=== PATIENT | male | born 1965 | race Caucasian/White ===

== ENCOUNTER 2016-06-12 05:51 | Emergency (ER) | payer OTHER ==
[2014-06-21 19:24] VITALS: BP 147/74
--- NOTE | 2016-06-12 06:27 | PHYS DOC ---
Past Medical History Past Medical History: Arthritis, Asthma Additional Past Medical Histor: chronic back pain, prostatitis Past Surgical History: Tonsillectomy Additional Past Surgical Histo: Orthoscopic Lt knee, nose Alcohol Use: None Drug Use: None Adult General Chief Complaint Chief Complaint: CPR/FULL ARREST HPI HPI Patient is a 50 year old gentleman with history significant for obstructive sleep apnea and hypertension presented to the ER today by EMS as a CODE BLUE alert. According to EMS, the woke up and heard her breathing funny so she called 911. Upon EMS arrival they report that he was apneic and was asystolic. Patient was intubated with an LMA. They proceeded with ACLS protocol for approximately 40 minutes prior to arrival to the ER here. She received approximately 4 rounds of epinephrine by EMS and 4-5 electrocardioversions without any change in the patient's rhythm. It was unclear whether the patient was in asystole versus in fine V. fib however the patient was treated in the field in fine V. fib with electric cardioversion. Patient had no spontaneous respirations. An per EMS patient had no pulse throughout their entire process. Upon arrival to the ER the patient was noted to be in either asystole versus extremely fine V. fib he was pulseless and apneic. ACLS was initiated in the ED the patient was given epinephrine and was shocked as well. Despite all these measures the patient remained asystolic and apneic. Patient's total code time was greater than 45 minutes. Patient was pronounced at 6:01 AM. Case was discussed with the patient's and she is aware of this diagnosis. Patient's PCP is Dr. Jose Knight. Dr. Sales is grants and contracts assistant for Dr. Knight. Dr. Sales reviewed the patient's chart and he feels patient would best served being a hooker up's case. The patient does not seem to have had many medical problems and apparently the last time he was seen by Dr. Knight was almost 7 months ago for lower extremity swelling. Further history was unobtainable from the patient secondary to his critical condition. Further physical exam was unobtainable from the patient secondary to his critical condition. Review of systems unobtainable secondary to the patient's critical condition. Upon arrival to the ER patient was asystolic, cyanotic, pulseless, pupils were 5 mm and fixed and dilated. Patient had no spontaneous pulse. No spontaneous respirations. Abdomen was soft nondistended. Lungs were with audible rhonchi with [id number] were equal bilaterally. A/P #1 status post cardiac arrest/status post CPR. Etiology of patient's CODE BLUE status is unclear. Patient was pronounced at 6:[address] Morse was notified the patient will be a hooker up's case. DW dr awad, accepts case for coroners Review of Systems Review of Systems Please see above Allergies Allergies Allergies Coded Allergies Type Severity Reaction Last Updated Verified No Known Drug Allergies 06/21/14 No Physical Exam Physical Exam Please see above EKG EKG [] Radiology/Procedures Radiology/Procedures [] Course & Med Decision Making Course & Med Decision Making Pertinent Labs and Imaging studies reviewed. (See chart for details) [] Dragon Disclaimer Dragon Disclaimer This electronic medical record was generated, in whole or in part, using a voice recognition dictation system. Departure Departure Impression: Primary Impression: Cardiac arrest Additional Impression: Respiratory arrest Disposition: 20 Condition: Referrals: ELLEN KNIGHT MD (PCP) Problem Qualifiers BAL SOLORZANO MD June 12, 2016 06:27
[2016-06-12] MEDS ORDERED: EPINEPHrine SYRINGE 1 MG/10 ML SYRINGE ONE (12:00)
[2016-06-12] MEDS ORDERED: SODIUM BICARB ADULT 8.4% 50 MEQ/50 ML DISP.SYRIN. ONE (12:00)
== END 2016-06-12 10:45 | disposition expired ==
LOC: ER 05:51
DX: I46.9 Cardiac arrest, cause unspecified (principal); R09.2 Respiratory arrest; J45.909 Unspecified asthma, uncomplicated; G89.29 Other chronic pain; M19.90 Unspecified osteoarthritis, unspecified site
CPT/HCPCS: 92950; 99285; J0171